=== PATIENT | female | born 2000 | race Caucasian/White ===

== ENCOUNTER 2020-02-15 13:33 | Emergency (ER) | payer OTHER ==
[~2020-02-15] VITALS: Ht 157.5 cm; Wt 69.0 kg
[2020-02-15 13:51] VITALS: BP 115/73
[2020-02-15] MEDS ORDERED: DEPAKOTE125 MG PO (13:56)
== END 2020-02-15 14:34 | disposition still patient (30) ==
LOC: ER 13:33
DX: G40.89 Other seizures (principal); Z79.899 Other long term (current) drug therapy; Z88.0 Allergy status to penicillin; Z88.1 Allergy status to other antibiotic agents; Z88.8 Allergy status to other drugs, medicaments and biological substances

== ENCOUNTER 2020-02-22 18:57 | Emergency (ER) | payer OTHER ==
[~2020-02-22] VITALS: Ht 154.9 cm; Wt 54.4 kg
[~2020-02-22 18:57] MED LIST: DEPAKOTE125 MG PO
[2020-02-22 19:38] LABS: URINE BILIRUBIN NEGATIVE (Negative); URINE BLOOD NEGATIVE (Negative); URINE CLARITY CLEAR; URINE COLOR YELLOW; URINE GLUCOSE-RANDOM* NEGATIVE (Negative); URINE KETONES NEGATIVE (Negative); URINE NITRITE-REFLEX NEGATIVE (Negative); URINE PROTEIN (DIPSTICK) NEGATIVE (Negative); URINE UROBILINOGEN 0.2 E.U./dl (0.2-1.0)
[2020-02-22 19:39] LABS: URINE LEUKOCYTES-REFLEX 2+ (Negative)
[2020-02-22 19:48] LABS: BACTERIA-REFLEX 1-9 Few /HPF (None Seen); CASTS None Seen /LPF (None Seen); CRYSTALS None Seen /LPF (None Seen); SQUAMOUS 4-10 Moderate /LPF (0-3); URINE RBC None Seen /HPF (0-2); URINE WBC-REFLEX 6-15 Few /HPF (0-5)
[2020-02-22] MEDS ORDERED: SENNA-DOCUSATE1 EAC1 PO (22:14)
[2020-02-22] MEDS ORDERED: NAPROSYN500 MG PO (22:14)
[2020-02-22] MEDS ORDERED: NORCO 5-325 TA1 EAC2 PO (22:14)
[2020-02-22] MEDS ORDERED: MEDROLDOSEPACK PO (22:14)
[2020-02-22 22:24] VITALS: BP 97/71
== END 2020-02-22 22:25 | disposition home or self-care (01) ==
LOC: ER 18:57
PROVIDERS: Emergency Medicine
DX: M51.27 Other intervertebral disc displacement, lumbosacral region (principal); F17.210 Nicotine dependence, cigarettes, uncomplicated; Z79.899 Other long term (current) drug therapy; Z88.0 Allergy status to penicillin; Z88.1 Allergy status to other antibiotic agents; Z88.8 Allergy status to other drugs, medicaments and biological substances; X50.1XXA Overexertion from prolonged static or awkward postures, initial encounter; Y93.89 Activity, other specified; Y92.89 Other specified places as the place of occurrence of the external cause; Y99.8 Other external cause status

== ENCOUNTER 2020-02-25 19:48 | Emergency (ER) | payer OTHER ==
[~2020-02-25] VITALS: Ht 154.9 cm; Wt 54.4 kg
[~2020-02-25 19:48] MED LIST changes: +MEDROLDOSEPACK PO; +NAPROSYN500 MG PO; +NORCO 5-325 TA1 EAC2 PO; +SENNA-DOCUSATE1 EAC1 PO
[2020-02-25 19:52] VITALS: BP 108/70
[2020-02-25] MEDS ORDERED: NORCO 5-325 TA1 EAC2 PO (20:06)
== END 2020-02-25 20:20 | disposition home or self-care (01) ==
LOC: ER 19:48
DX: M54.16 Radiculopathy, lumbar region (principal); F41.9 Anxiety disorder, unspecified; F17.210 Nicotine dependence, cigarettes, uncomplicated; Z98.890 Other specified postprocedural states; Z79.899 Other long term (current) drug therapy; Z88.0 Allergy status to penicillin; Z88.1 Allergy status to other antibiotic agents; Z88.8 Allergy status to other drugs, medicaments and biological substances

== ENCOUNTER 2020-02-28 14:28 | Emergency (ER) | payer OTHER ==
[~2020-02-28] VITALS: Ht 154.9 cm; Wt 54.4 kg
[2020-02-28 14:34] VITALS: BP 113/64
[2020-02-28] MEDS ORDERED: MOBIC15 MG PO (15:12)
[2020-02-28] MEDS ORDERED: NORFLEX100 MG PO (15:12)
== END 2020-02-28 17:02 | disposition home or self-care (01) ==
LOC: ER 14:28
DX: M54.5 Low back pain (principal); F17.210 Nicotine dependence, cigarettes, uncomplicated; Z79.899 Other long term (current) drug therapy; Z88.0 Allergy status to penicillin; Z88.1 Allergy status to other antibiotic agents; Z88.8 Allergy status to other drugs, medicaments and biological substances

== ENCOUNTER 2020-03-21 11:33 | Emergency (ER) | payer OTHER ==
[~2020-03-21] VITALS: Ht 154.9 cm; Wt 59.0 kg
[~2020-03-21 11:33] MED LIST changes: +MOBIC15 MG PO; +NORFLEX100 MG PO
[2020-03-21] MEDS ORDERED: IBUPROFEN200 M1 PO (11:43)
[2020-03-21] MEDS ORDERED: CLEOCIN HCL300 MG PO (12:09)
[2020-03-21] MEDS ORDERED: TIZANIDINE4 MG/1 TA1 PO (12:12)
[2020-03-21 12:30] VITALS: BP 119/58
== END 2020-03-21 12:30 | disposition home or self-care (01) ==
LOC: ER 11:33
DX: S16.1XXA Strain of muscle, fascia and tendon at neck level, initial encounter (principal); K04.7 Periapical abscess without sinus; F17.210 Nicotine dependence, cigarettes, uncomplicated; Z88.0 Allergy status to penicillin; Z88.1 Allergy status to other antibiotic agents; Z88.8 Allergy status to other drugs, medicaments and biological substances; X50.1XXA Overexertion from prolonged static or awkward postures, initial encounter; Y93.89 Activity, other specified; Y92.89 Other specified places as the place of occurrence of the external cause; Y99.8 Other external cause status

== ENCOUNTER 2020-06-06 20:29 | Emergency (ER) | payer OTHER ==
[~2020-06-06] VITALS: Ht 157.5 cm; Wt 62.6 kg
[~2020-06-06 20:29] MED LIST changes: +CLEOCIN HCL300 MG PO; +IBUPROFEN200 M1 PO; +TIZANIDINE4 MG/1 TA1 PO
[2020-06-06 20:53] VITALS: BP 121/83
[2020-06-06 21:11] LABS: URINE BILIRUBIN NEGATIVE (Negative); URINE BLOOD NEGATIVE (Negative); URINE CLARITY CLEAR; URINE COLOR YELLOW; URINE GLUCOSE-RANDOM* NEGATIVE (Negative); URINE KETONES NEGATIVE (Negative); URINE LEUKOCYTES-REFLEX NEGATIVE (Negative); URINE NITRITE-REFLEX NEGATIVE (Negative); URINE PROTEIN (DIPSTICK) NEGATIVE (Negative); URINE SPECIFIC GRAVITY 1.025 (1.005-1.035); URINE UROBILINOGEN 0.2 E.U./dl (0.2-1.0)
[2020-06-06] MEDS ORDERED: NAPROSYN500 MG PO (22:00)
== END 2020-06-06 22:17 | disposition home or self-care (01) ==
LOC: ER 20:29
PROVIDERS: Emergency Medicine
DX: N83.202 Unspecified ovarian cyst, left side (principal); F41.9 Anxiety disorder, unspecified; F17.210 Nicotine dependence, cigarettes, uncomplicated; Z98.890 Other specified postprocedural states; Z79.899 Other long term (current) drug therapy; Z88.8 Allergy status to other drugs, medicaments and biological substances; Z88.0 Allergy status to penicillin; Z88.1 Allergy status to other antibiotic agents; Z76.5 Malingerer [conscious simulation]; Z87.42 Personal history of other diseases of the female genital tract

== ENCOUNTER 2021-02-20 13:25 | Emergency (ER) | payer OTHER ==
[~2021-02-20] VITALS: Ht 157.5 cm; Wt 70.3 kg
[2021-02-20 13:32] VITALS: BP 96/55
[2021-02-20] MEDS ORDERED: PROZAC10 M1 PO (13:37)
[2021-02-20] MEDS ORDERED: TRAMADOL 50 MG50 MG PO (13:37)
[2021-02-20] MEDS ORDERED: NEURONTIN300 MG PO (13:37)
[2021-02-20 13:51] LABS: URINE BILIRUBIN NEGATIVE (Negative); URINE BLOOD NEGATIVE (Negative); URINE CLARITY CLEAR; URINE COLOR YELLOW; URINE GLUCOSE-RANDOM* NEGATIVE (Negative); URINE KETONES TRACE (Negative); URINE NITRITE-REFLEX NEGATIVE (Negative); URINE PROTEIN (DIPSTICK) NEGATIVE (Negative); URINE SPECIFIC GRAVITY 1.025 (1.005-1.035); URINE UROBILINOGEN 0.2 E.U./dl (0.2-1.0)
[2021-02-20 13:52] LABS: URINE LEUKOCYTES-REFLEX 2+ (Negative)
[2021-02-20 14:04] LABS: SQUAMOUS >10 Many /LPF (0-3)
[2021-02-20 14:05] LABS: CASTS None Seen /LPF (None Seen); MUCUS >6 Heavy strn/LPF (None Seen)
[2021-02-20 14:06] LABS: CRYSTALS None Seen /LPF (None Seen); URINE RBC 1-2 Rare /HPF (NONE SEEN); URINE WBC-REFLEX 6-15 Few /HPF (0-5)
[2021-02-20 14:11] LABS: AMP/METHAMP Negative (Negative); BARBITURATES Negative (Negative); BENZODIAZEPINES Negative (Negative); COCAINE Negative (Negative); METHADONE Negative (Negative); OPIATES Negative (Negative); PCP Negative (Negative)
== END 2021-02-20 14:32 | disposition left against medical advice (07) ==
LOC: ER 13:25
PROVIDERS: Physician Assistant
DX: G89.29 Other chronic pain (principal); M54.9 Dorsalgia, unspecified; F41.9 Anxiety disorder, unspecified; F17.210 Nicotine dependence, cigarettes, uncomplicated; Z79.899 Other long term (current) drug therapy; Z88.0 Allergy status to penicillin; Z88.8 Allergy status to other drugs, medicaments and biological substances; Z88.1 Allergy status to other antibiotic agents; Z88.9 Allergy status to unspecified drugs, medicaments and biological substances